=== PATIENT | male | born 1955 | race Caucasian/White ===

== ENCOUNTER 2018-02-03 16:06 | Inpatient (IN) | payer OTHER ==
[2018-02-03 16:43] LABS: ADD MAN DIFF? NO
[2018-02-03 16:48] LABS: BASOPHIL # 0.1 10^3/ul (0.0-0.1); BASOPHILS % 0.8 % (0.0-2.0); EOSINOPHILS # 0.1 10^3/ul (0.0-0.5); EOSINOPHILS % 0.9 % (0.0-7.0); HEMATOCRIT 41.2 % (42.0-52.0); HEMOGLOBIN 14.5 g/dl (14.0-18.0); LYMPHOCYTES # 2.2 10^3/ul (0.8-2.9); LYMPHOCYTES % 16.1 % (15.0-51.0); MEAN CORPUSCULAR HEMOGLOBIN 28.4 pg (29.0-33.0); MEAN CORPUSCULAR HGB CONC 35.2 g/dl (32.0-37.0); MEAN CORPUSCULAR VOLUME 80.6 fl (82.0-101.0); MEAN PLATELET VOLUME 11.1 fl (7.4-10.4); MONOCYTE # 1.1 10^3/ul (0.3-0.9); MONOCYTES % 8.2 % (0.0-11.0); NEUTROPHIL # 9.8 10^3/ul (1.6-7.5); NEUTROPHILS % 73.4 % (39.0-77.0); PLATELET COUNT 305 10^3/UL (140-415); RED BLOOD COUNT 5.11 10^6/ul (4.70-6.10); RED CELL DISTRIBUTION WIDTH 12.9 % (11.5-14.5)
[2018-02-03 16:48] LABS: WHITE BLOOD COUNT 13.4 10^3/ul (4.8-10.8)
[2018-02-03] MEDS: CEFTRIAXONE 1 GM/50 ML (PMX) 50 ML IVPB (17:02)
[2018-02-03] MEDS: ACETAMINOPHEN 325 MG TAB PO (17:02)
[2018-02-03] MEDS: SODIUM CHLORIDE 0.9% 1L BAG IV* (17:03)
[2018-02-03 17:08] LABS: INR 1.03; PROTIME 13.6 Sec (11.9-14.9); PT RATIO 1.1
[2018-02-03 17:09] LABS: PARTIAL THROMBOPLASTIN TIME 26.5 Sec (25.0-35.0)
[2018-02-03 17:10] LABS: LACTIC ACID 1.6 mmol/L (0.5-2.0)
[2018-02-03 17:12] LABS: ALANINE AMINOTRANSFERASE 34 IU/L (13-69); ALBUMIN 4.1 g/dl (3.3-4.9); ALBUMIN/GLOBULIN RATIO 1.32; ALKALINE PHOSPHATASE 56 IU/L (42-121); ANION GAP 18 (8-16); ASPARTATE AMINO TRANSFERASE 24 IU/L (15-46); BILIRUBIN,INDIRECT 0.4 mg/dl (0-1.1); BILIRUBIN,TOTAL 0.4 mg/dl (0.2-1.3); BLOOD UREA NITROGEN 17 mg/dl (7-20); CALCIUM 9.4 mg/dl (8.4-10.2); CARBON DIOXIDE 19 mmol/L (21-31); CHLORIDE 100 mmol/L (97-110); CREATININE 1.03 mg/dl (0.61-1.24); GLUCOSE 170 mg/dl (70-220); LIPASE 87 U/L (23-300); POTASSIUM 3.1 mmol/L (3.5-5.1); SODIUM 134 mmol/L (135-144); TOTAL PROTEIN 7.2 g/dl (6.1-8.1)
[2018-02-03 17:22] LABS: TROPONIN-I 0.047 ng/ml (0.000-0.120)
[2018-02-03] MEDS: VANCOMYCIN 1 GM (PMX) 250 ML IVPB (17:41)
[2018-02-03 17:57] LABS: ADD UMIC YES; UR ASCORBIC ACID NEGATIVE (NEGATIVE); UR BILIRUBIN (Dip) NEGATIVE (NEGATIVE); UR BLOOD (Dip) NEGATIVE (NEGATIVE); UR CLARITY CLEAR (CLEAR); UR COLOR YELLOW (YELLOW); UR GLUCOSE (Dip) NEGATIVE (NEGATIVE); UR KETONES (Dip) NEGATIVE (NEGATIVE); UR LEUKOCYTE ESTERASE (Dip) NEGATIVE Leu/ul (NEGATIVE); UR NITRITE (Dip) NEGATIVE (NEGATIVE); UR RBC 2 /HPF (0-5); UR SPECIFIC GRAVITY (Dip) 1.014 (1.003-1.030); UR TOTAL PROTEIN (Dip) 3+ mg/dl (NEGATIVE); UR UROBILINOGEN (Dip) NEGATIVE (NEGATIVE); UR WBC 1 /HPF (0-5)
[2018-02-03] MEDS: POTASSIUM CHLORIDE 100 ML IVPB (18:51)
[2018-02-03] MEDS: MAGNESIUM SULFATE 1 GM/D5W 100 ML IVPB (18:51)
[2018-02-03] MEDS ORDERED: DEXTROSE 50% 50 ML SYRINGE IV ×2 (21:00)
[2018-02-03] MEDS ORDERED: GLUCOSE GEL 15 GRAM TUBE BUCCAL (21:00)
[2018-02-03] MEDS ORDERED: GLUCAGON 1 MG INJ IM (21:00)
[2018-02-03] MEDS ORDERED: GLUCOSE GEL 15 GRAM TUBE PO ×2 (21:00)
[2018-02-03] MEDS ORDERED: ACETAMINOPHEN 325 MG TAB PO (21:00)
[2018-02-03] MEDS: INSULIN ASPART [NOVOLOG] 3 ML PEN SC (21:00)
[2018-02-03] MEDS: METOPROLOL 25 MG TAB PO (21:40)
[2018-02-03 21:48] LABS: LACTIC ACID 1.3 mmol/L (0.5-2.0)
[2018-02-03] MEDS: ACCU-CHEK XX (23:51)
[2018-02-04 00:02] LABS: CREATINE KINASE 85 IU/L (23-200)
[2018-02-04 00:12] LABS: CK INDEX 0.8; CK-MB 0.64 ng/ml (0.0-2.4); TROPONIN-I 0.049 ng/ml (0.000-0.120)
[2018-02-04] MEDS: hydrALAzine 20 MG INJ IV (04:44)
[2018-02-04 06:27] LABS: CREATINE KINASE 85 IU/L (23-200)
[2018-02-04] MEDS ORDERED: traMADol 50 MG TAB PO (06:30)
[2018-02-04] MEDS ORDERED: MECLIZINE 25 MG TAB PO (06:30)
[2018-02-04] MEDS ORDERED: LORAZEPAM 1 MG TAB PO (06:30)
[2018-02-04 06:37] LABS: CK INDEX 0.8; CK-MB 0.67 ng/ml (0.0-2.4); TROPONIN-I 0.053 ng/ml (0.000-0.120)
[2018-02-04] MEDS: INSULIN ASPART [NOVOLOG] 3 ML PEN SC ×6 (07:45→20:26)
[2018-02-04] MEDS: POTASSIUM CHLORIDE 100 ML IVPB ×3 (07:45→12:24)
[2018-02-04 08:01] LABS: ADD MAN DIFF? NO
[2018-02-04 08:09] LABS: BASOPHIL # 0.1 10^3/ul (0.0-0.1); BASOPHILS % 0.9 % (0.0-2.0); EOSINOPHILS # 0.2 10^3/ul (0.0-0.5); EOSINOPHILS % 2.1 % (0.0-7.0); HEMATOCRIT 39.8 % (42.0-52.0); LYMPHOCYTES # 1.8 10^3/ul (0.8-2.9); LYMPHOCYTES % 15.3 % (15.0-51.0); MEAN CORPUSCULAR HEMOGLOBIN 28.7 pg (29.0-33.0); MEAN CORPUSCULAR HGB CONC 35.2 g/dl (32.0-37.0); MEAN CORPUSCULAR VOLUME 81.6 fl (82.0-101.0); MEAN PLATELET VOLUME 11.8 fl (7.4-10.4); NEUTROPHIL # 8.3 10^3/ul (1.6-7.5); PLATELET COUNT 249 10^3/UL (140-415); RED BLOOD COUNT 4.88 10^6/ul (4.70-6.10); RED CELL DISTRIBUTION WIDTH 13.1 % (11.5-14.5)
[2018-02-04 08:09] LABS: WHITE BLOOD COUNT 11.5 10^3/ul (4.8-10.8)
[2018-02-04] MEDS: FAMOTIDINE 20 MG TAB PO ×2 (08:11→20:23)
[2018-02-04] MEDS: DULOXETINE 30 MG CAP DR PO (08:11)
[2018-02-04] MEDS: CLOPIDOGREL 75 MG TAB PO (08:11)
[2018-02-04] MEDS: AMLODIPINE 5 MG TAB PO (08:12)
[2018-02-04] MEDS: LEVOFLOXACIN 500MG/D5W (PMX) 100 ML IVPB (08:12)
[2018-02-04 08:20] LABS: ALANINE AMINOTRANSFERASE 27 IU/L (13-69); ALBUMIN 3.7 g/dl (3.3-4.9); ALBUMIN/GLOBULIN RATIO 1.23; ALKALINE PHOSPHATASE 45 IU/L (42-121); ANION GAP 15 (8-16); ASPARTATE AMINO TRANSFERASE 26 IU/L (15-46); BILIRUBIN,INDIRECT 0.3 mg/dl (0-1.1); BILIRUBIN,TOTAL 0.3 mg/dl (0.2-1.3); BLOOD UREA NITROGEN 13 mg/dl (7-20); CARBON DIOXIDE 22 mmol/L (21-31); CHLORIDE 105 mmol/L (97-110); CHOL/HDL RATIO 4.8 RATIO; CHOLESTEROL 132 mg/dl (100-200); CREATININE 0.97 mg/dl (0.61-1.24); GLUCOSE 79 mg/dl (70-220); HDL CHOLESTEROL 27 mg/dl (30-78); LDL CHOLESTEROL,CALCULATED 77 mg/dl; SODIUM 139 mmol/L (135-144); TOTAL PROTEIN 6.7 g/dl (6.1-8.1); TRIGLYCERIDES 139 mg/dl (0-149)
[2018-02-04 08:25] LABS: POTASSIUM 2.8 mmol/L (3.5-5.1)
[2018-02-04 08:31] LABS: HEMOGLOBIN A1C 7.4 % (0-5.9)
[2018-02-04 09:45] LABS: THYROID STIMULATING HORMONE 0.636 MIU/L (0.465-4.680)
[2018-02-04] MEDS: OXYBUTYNIN 5 MG TAB PO ×3 (09:59→20:23)
[2018-02-04] MEDS: FISH OIL 1,000 MG CAP PO ×2 (12:23→20:23)
[2018-02-04 12:48] LABS: MAGNESIUM 1.7 mg/dl (1.7-2.5)
[2018-02-04] MEDS: ATORVASTATIN 10 MG TAB PO (20:22)
[2018-02-04] MEDS: INSULIN GLARGINE [LANTus] (100 UNITS/ML) SYG SC (20:26)
[2018-02-05] MEDS: ACCU-CHEK XX (02:00)
[2018-02-05] MEDS ORDERED: LOSARTAN 50 MG TAB PO (09:00)
== END 2018-02-05 07:18 | disposition left against medical advice (07) | DRG 872 ==
LOC: E/R 16:06 → 6WM 18:12
DX: A41.9 Sepsis, unspecified organism (principal); Z68.42 Body mass index [BMI] 45.0-49.9, adult; I69.354 Hemiplegia and hemiparesis following cerebral infarction affecting left non-dominant side; E66.01 Morbid (severe) obesity due to excess calories; R07.9 Chest pain, unspecified; E10.9 Type 1 diabetes mellitus without complications; I10 Essential (primary) hypertension; I25.5 Ischemic cardiomyopathy; I25.10 Atherosclerotic heart disease of native coronary artery without angina pectoris; E78.5 Hyperlipidemia, unspecified; E87.6 Hypokalemia; Z79.4 Long term (current) use of insulin; Z87.891 Personal history of nicotine dependence; Z95.1 Presence of aortocoronary bypass graft
CPT/HCPCS: 71045; 74176; 80053; 80061; 81001; 82550; 82553; 82962; 83036; 83605; 83690; 83735; 84443; 84484; 85025; 85610; 85730; 87040; 87086; 93005; 96374; 96375; 99285-25

== ENCOUNTER 2018-02-07 18:02 | Emergency (ER) | payer OTHER ==
[2018-02-07 23:08] LABS: ADD MAN DIFF? NO
[2018-02-07] MEDS: ACETAMINOPHEN 325 MG TAB PO (23:09)
[2018-02-07 23:27] LABS: WHITE BLOOD COUNT 10.8 10^3/ul (4.8-10.8)
[2018-02-07 23:27] LABS: BASOPHIL # 0.1 10^3/ul (0.0-0.1); BASOPHILS % 0.7 % (0.0-2.0); EOSINOPHILS # 0.3 10^3/ul (0.0-0.5); EOSINOPHILS % 2.5 % (0.0-7.0); HEMATOCRIT 40.4 % (42.0-52.0); HEMOGLOBIN 14.1 g/dl (14.0-18.0); LYMPHOCYTES # 1.9 10^3/ul (0.8-2.9); LYMPHOCYTES % 17.3 % (15.0-51.0); MEAN CORPUSCULAR HEMOGLOBIN 28.1 pg (29.0-33.0); MEAN CORPUSCULAR HGB CONC 34.9 g/dl (32.0-37.0); MEAN CORPUSCULAR VOLUME 80.6 fl (82.0-101.0); MEAN PLATELET VOLUME 11.1 fl (7.4-10.4); MONOCYTE # 0.9 10^3/ul (0.3-0.9); NEUTROPHIL # 7.7 10^3/ul (1.6-7.5); NEUTROPHILS % 70.6 % (39.0-77.0); PLATELET COUNT 306 10^3/UL (140-415); RED BLOOD COUNT 5.01 10^6/ul (4.70-6.10); RED CELL DISTRIBUTION WIDTH 12.9 % (11.5-14.5)
[2018-02-07 23:37] LABS: ADD UMIC YES; UR ASCORBIC ACID NEGATIVE (NEGATIVE); UR BILIRUBIN (Dip) NEGATIVE (NEGATIVE); UR BLOOD (Dip) NEGATIVE (NEGATIVE); UR CLARITY CLEAR (CLEAR); UR COLOR YELLOW (YELLOW); UR GLUCOSE (Dip) NEGATIVE (NEGATIVE); UR KETONES (Dip) NEGATIVE (NEGATIVE); UR LEUKOCYTE ESTERASE (Dip) NEGATIVE Leu/ul (NEGATIVE); UR NITRITE (Dip) NEGATIVE (NEGATIVE); UR RBC 1 /HPF (0-5); UR SPECIFIC GRAVITY (Dip) 1.019 (1.003-1.030); UR TOTAL PROTEIN (Dip) 3+ mg/dl (NEGATIVE); UR UROBILINOGEN (Dip) NEGATIVE (NEGATIVE); UR WBC 2 /HPF (0-5)
[2018-02-07 23:46] LABS: INR 0.98; PROTIME 13.1 Sec (11.9-14.9)
[2018-02-07 23:46] LABS: LACTIC ACID 1.6 mmol/L (0.5-2.0)
[2018-02-07 23:47] LABS: ALANINE AMINOTRANSFERASE 40 IU/L (13-69); ALBUMIN/GLOBULIN RATIO 1.21; ALKALINE PHOSPHATASE 61 IU/L (42-121); ANION GAP 13 (8-16); ASPARTATE AMINO TRANSFERASE 23 IU/L (15-46); BILIRUBIN,INDIRECT 0.5 mg/dl (0-1.1); BILIRUBIN,TOTAL 0.5 mg/dl (0.2-1.3); BLOOD UREA NITROGEN 11 mg/dl (7-20); CALCIUM 9.3 mg/dl (8.4-10.2); CARBON DIOXIDE 26 mmol/L (21-31); CHLORIDE 98 mmol/L (97-110); CREATININE 0.99 mg/dl (0.61-1.24); GLUCOSE 164 mg/dl (70-220); PARTIAL THROMBOPLASTIN TIME 27.1 Sec (25.0-35.0); SODIUM 134 mmol/L (135-144); TOTAL PROTEIN 7.3 g/dl (6.1-8.1)
[2018-02-07 23:58] LABS: TROPONIN-I 0.026 ng/ml (0.000-0.120)
[2018-02-08 01:00] LABS: LACTIC ACID 1.1 mmol/L (0.5-2.0)
== END 2018-02-08 01:43 | disposition home or self-care (01) ==
LOC: E/R 02-08 01:43
DX: R07.9 Chest pain, unspecified (principal); I10 Essential (primary) hypertension; I25.10 Atherosclerotic heart disease of native coronary artery without angina pectoris; E66.01 Morbid (severe) obesity due to excess calories; E11.9 Type 2 diabetes mellitus without complications; R50.9 Fever, unspecified; Z68.42 Body mass index [BMI] 45.0-49.9, adult; Z95.1 Presence of aortocoronary bypass graft; Z87.891 Personal history of nicotine dependence; Z79.82 Long term (current) use of aspirin; Z79.4 Long term (current) use of insulin; Z79.01 Long term (current) use of anticoagulants
CPT/HCPCS: 36415; 71045; 80053; 81001; 83605; 84484; 85025; 85610; 85730; 87040; 87086; 93005; 99285-25